=== PATIENT | female | born 1995 | race Caucasian/White ===

== ENCOUNTER 2022-08-13 23:04 | Inpatient (IN) ==
[2022-08-13] MEDS ORDERED: LACTATED RINGER'S 1,000 ML IV STA (23:41)
[2022-08-14] MEDS ORDERED: PENICILLIN G POTASSIUM 6 MU in DEXTROSE 5% 250 ML IV STA (01:29)
[2022-08-14] MEDS ORDERED: LIDOCAINE 1% LOCAL 20 ML VIAL INFIL PRN (01:29)
[2022-08-14] MEDS ORDERED: OXYTOCIN 30 UNITS/500 ML BAG IV PRN ×3 (01:29→16:49)
--- NOTE | 2022-08-14 01:39 | History & Physical Report ---
Date of Service August 14, 2022 Assessment & Plan (1) Uterine contractions at greater than 20 weeks of gestation: Plan: 27-year-old at 38 weeks and 2 days of gestation presenting today with regular contractions, cervical change, desire for epidural for pain, Vital signs stable afebrile, heart rate reassuring, GBS positive, CF during managed by pulmonology at [facility] stable on her meds, Admit, monitor, labs, penicillin for GBS, expectant management, All questions were answered. (2) GBS (group B Streptococcus carrier), +RV culture, currently : History of Present Illness Primary Care Provider: Ruthie Wlaker DO Patient is a 27-year-old G1, P0 at 38 weeks and 2 days of gestation who has been feeling contractions since yesterday morning. They got more painful and regular after 7 PM last night. She feels them every 1 to 2 minutes and rates pain 8 out of 10. She denies leakage of fluid or vaginal bleeding, she reports good movements. She was in the office yesterday and her cervix was checked to be 3 cm dilated, 70% effaced, -2 station, her contractions were irregular and less painful than. Her has been complicated by, 1. Cystic fibrosis, managed by pulmonology at [facility], patient was planning to deliver at [facility] but she stopped here due to frequent and painful contractions and wants to stay here to deliver. 2. GBS positive, patient denies allergy to penicillin, 3. Rubella nonimmune, Allergies Allergy/AdvReac Type Severity Reaction Status Date / Time cephalexin [From Keflex] Allergy Severe Hives Verified 08/13/22 23:24 sulfamethoxazole Allergy Severe Hives Verified 08/13/22 23:24 [From Bactrim] trimethoprim [From Bactrim] Allergy Severe Hives Verified 08/13/22 23:24 Home Medications Medication Instructions Recorded Confirmed Type cetirizine 10 mg tablet (Zyrtec) 10 mg PO DAILY 06/13/19 08/13/22 History cholecalciferol (vitamin D3) 250 mcg PO DAILY 06/13/19 08/13/22 History docusate sodium 100 mg capsule 100 mg PO BID 06/13/19 08/13/22 History (Colace) dornase logan 1 mg/mL solution for 2.5 mg inhalation DAILY 06/13/19 08/13/22 History inhalation (Pulmozyme) phytonadione (vitamin K1) 5 mg 5 mg PO DAILY 06/13/19 08/13/22 History tablet elexacaftor 100 mg-tezacaf 1 ea PO HS 06/16/19 08/13/22 History 50mg-ivacaf 75mg(d)/ivacaf 150mg(n) tablets (Trikafta) albuterol sulfate 2.5 mg/3 mL 2.5 mg inhalation BID 08/03/22 08/13/22 History (0.083 %) solution for nebulization famotidine 20 mg tablet 40 mg PO HS 08/03/22 08/13/22 History ferrous sulfate 325 mg (65 mg 325 mg PO DAILY 08/03/22 08/13/22 History iron) tablet prenat.vits,irene,xiv-befp-navvz 1 tab PO DAILY 08/03/22 08/13/22 History Patient History Medical History (Updated 08/14/22 @ 01:38 by Mariam Kendall MD) Chronic headache Classic migraine with aura Cystic fibrosis with pulmonary manifestations GERD (gastroesophageal reflux disease) Malabsorption syndrome Secondary trigeminal neuralgia Surgical History H/O sinus surgery H/O wisdom tooth extraction History of ankle surgery S/P cholecystectomy Family History Mother Thyroid disease Grandmother Thyroid disease Diabetes Heart trouble Social History Smoking Status: Never smoker Hx Alcohol Use: No Hx Substance Use: No Preferred Language: Nepalese Communication Ability: Effective Hearing Ability: Normal Information Technology Administrator Required: No Beliefs That Will Affect Care: None marital status: Current Living Situation: Spouse Current Living Situation Comment: House with , step son and foster child current occupational status: unemployed Other Information That Helps Us Care for You: No Feels Safe at Home: Yes Safety Concerns: Feels Safe At This Time Diet Comment: High fat, high salt due to Cystic Fibrosis Gender Identity: Female Assistive Devices: None REGIONAL PLANNER History No history of STDs, no history of genital herpes, chlamydia, gonorrhea Review of Systems as per Subjective / HPI Physical Exam Constitutional: WD/WN, vitals as above Gastrointestinal (Abdomen): normal bowel sounds, soft, nontender, no hepatosplenomegaly (Gravid) Genitourinary: normal external appearance OB Exam Abdomen: + vertex Manual OB Exam: + cervical dilation 3 cm (3-4 cm), + cervical effacement 70% and + station -2 (Right bulging amniotic bag) OB Exam Monitor Tracing: + external uterine monitor used (Contractions every 1 to 2 minutes) and + category I Results & Data ([facility]) Vital Signs (Past 12 Hours) Vital Signs Temp Pulse Resp BP O2 Del Method 08/13/22 23:27 36.8 C 18 Room Air 08/13/22 23:21 36.8 C 93 H 18 118/71
[2022-08-14] MEDS: LACTATED RINGER'S 1,000 ML IV PRN ×2 (01:47→10:23)
[2022-08-14 02:00] LABS: Hematocrit (blood only) 33.4 % (34.1-44.9); Hemoglobin 11.4 g/dl (12.0-16.0); Mean Corpuscular Hemoglobin 30.5 pg (25.0-34.0); Mean Corpuscular Hgb Conc 34.1 g/dL (32.0-36.0); Mean Corpuscular Volume 89.3 fL (80.0-100.0); Mean Platelet Volume 10.2 fL (9.4-12.3); Platelet Count 304 K/uL (130-400); RDW Coefficient of Variation 13.6 % (11.5-14.5); RDW Standard Deviation 44.9 fL (36.4-46.3); Red Blood Count 3.74 M/uL (3.93-5.22); White Blood Count 14.62 K/ul (4.8-10.8)
[2022-08-14] MEDS ORDERED: BUPIVACAINE 0.25% 30 ML VIAL ONE (02:07)
[2022-08-14] MEDS ORDERED: fentaNYL citrate 100 MCG/2 ML VIAL ONE (02:07)
[2022-08-14] MEDS ORDERED: LIDOCAINE 2%/EPINEPHRINE 1:200,000 20 ML SDV ONE (02:07)
[2022-08-14] MEDS ORDERED: SODIUM CHLORIDE 0.9% INJ 10 ML VIAL ONE (02:07)
[2022-08-14] MEDS ORDERED: ePHEDrine sulfate 50 MG/ML AMP ONE (02:07)
[2022-08-14] MEDS ORDERED: fentaNYL 2MCG/ML ROPIVACAINE 1.25MG/ML 100 ML BAG EPI ONE (02:08)
[2022-08-14 02:13] LABS: Albumin Globulin Ratio 0.9 (0.9-2); Albumin Level 3.3 gm/dl (3.4-5.0); BUN Creatinine Ratio 17.1 (10-20); Bilirubin,Total 0.3 mg/dl (0.2-1.0); Calcium 9.6 mg/dl (8.5-10.1); Creatinine Clr Calc Pharmacy 122.4 ml/min; Est GFR (African American) 136.7 ml/min; Est GFR (Non-African American) 117.9 ml/min; Globulin 3.5 gm/dl (2.5-4.0); Potassium 3.8 mmol/L (3.5-5.1); Total Protein 6.8 gm/dl (6.0-8.3)
[2022-08-14 02:43] LABS: Fibrinogen 479 mg/dl (184-400); Partial Thromboplastin Ratio 0.9; Partial Thromboplastin Time 24.2 Seconds (21.0-31.0); Prothrombin Time 10.7 Seconds (9.0-12.0)
--- NOTE | 2022-08-14 02:47 | Anesthesiology Consultation ---
Date of Service August 14, 2022 Assessment & Plan Chart Review Chart Review: Patient NOT seen in Pre Admission Testing and Acceptable Risk for Labor Epidural Consults Requested none ASA ASA3 Proposed Anesthesia Anesthesia Type: Labor Epidural and CSE Risk / Benefits Reviewed With: PT / POA / Parent / Guardian, Accepts Plan and Informed Consent Obtained History Height/Weight Height: 5 ft 3 in Weight: 83.461 kg Allergies Allergy/AdvReac Type Severity Reaction Status Date / Time cephalexin [From Keflex] Allergy Severe Hives Verified 08/13/22 23:24 sulfamethoxazole Allergy Severe Hives Verified 08/13/22 23:24 [From Bactrim] trimethoprim [From Bactrim] Allergy Severe Hives Verified 08/13/22 23:24 Medications Home Medications Medication Instructions Recorded Confirmed Last Taken cetirizine 10 mg tablet (Zyrtec) 10 mg PO DAILY 06/13/19 08/13/22 08/13/22 21:00 cholecalciferol (vitamin D3) 250 mcg PO DAILY 06/13/19 08/13/22 08/13/22 21:00 docusate sodium 100 mg capsule 100 mg PO BID 06/13/19 08/13/22 08/13/22 21:00 (Colace) dornase logan 1 mg/mL solution for 2.5 mg inhalation DAILY 06/13/19 08/13/2208/03 21:00 inhalation (Pulmozyme) phytonadione (vitamin K1) 5 mg 5 mg PO DAILY 06/13/19 08/13/22 08/13/22 21:00 tablet elexacaftor 100 mg-tezacaf 1 ea PO HS 06/16/19 08/13/22 08/13/22 21:00 50mg-ivacaf 75mg(d)/ivacaf 150mg(n) tablets (Trikafta) albuterol sulfate 2.5 mg/3 mL 2.5 mg inhalation BID 08/03/22 08/13/22 08/13/22 21:00 (0.083 %) solution for nebulization famotidine 20 mg tablet 40 mg PO HS 08/03/22 08/13/22 08/13/22 21:00 ferrous sulfate 325 mg (65 mg 325 mg PO DAILY 08/03/22 08/13/22 08/13/22 21:00 iron) tablet prenat.vits,irene,uqd-acjf-lzeqd 1 tab PO DAILY 08/03/22 08/13/22 08/13/22 21:00 Active Medications Generic Name Dose Route Start Last Admin Trade Name Tal PRN Reason Stop Dose Admin Lactated Ringer's 1,000 mls @ 150 mls/hr 08/14/22 01:29 08/14/22 01:47 Lr IV 08/16/22 01:28 150 mls/hr .[id number] PRN Administration L&D Protocol Protocol NPO Date Last Intake of Fluids: 08/14/22 Time Last Intake of Fluids: 02:00 Date Last Intake of Solids: 08/13/22 Time Last Intake of Solids: 19:00 Past Medical History Medical History Asthma Chronic headache Classic migraine with aura Cystic fibrosis with pulmonary manifestations GERD (gastroesophageal reflux disease) Malabsorption syndrome Secondary trigeminal neuralgia Exercise / Class Metabolic Activity II 4-5 Yardwork/Stairs/Walk up hill Past Family History Family History Mother Thyroid disease Grandmother Thyroid disease Diabetes Heart trouble Past Surgical History Surgical History H/O sinus surgery H/O wisdom tooth extraction History of ankle surgery S/P cholecystectomy Past Anesthesia History No Hx of Anesthesia Complications and No Family Hx of Anesthesia Complications Social History Smoking Status: Never smoker Hx Alcohol Use: No Hx Substance Use: No substance use type: does not use Review of Systems no chest pain or sob Physical Exam Vital Signs Last Vital Signs Temp 36.5 C 08/14/22 02:20 Pulse 80 08/14/22 02:40 Resp 18 08/14/22 02:20 BP 136/90 08/14/22 02:22 Pulse Ox 97 08/14/22 02:40 O2 Del Method 08/13/22 23:27 ENMT Mouth: no TMJ abnormality Thyromental Distance: > or= 3.5 Finger Breadths Mallampati Class: II Neck normal visual inspection Respiratory normal respiratory effort Auscultation: lungs clear to auscultation bilaterally Cardiovascular Rate/Rhythm: regular rate and regular rhythm Musculoskeletal Spine: normal cervical ROM Neurologic moves all extremities Psychiatric Orientation: alert and oriented x 3 Testing Laboratory Results 08/14/22 01:42 08/14/22 01:42 PT 10.7 Seconds (9.0-12.0) 08/14/22 01:46 INR 1.0 (0.9-1.1) 08/14/22 01:46 APTT 24.2 Seconds (21.0-31.0) 08/14/22 01:46
--- NOTE | 2022-08-14 02:52 | Obstetrical Progress Note ---
Date of Service August 14, 2022 Assessment & Plan Admission and Anticipated Discharge Date Admission Date: August 14, 2022 Subjective Patient is reevaluated No LOF/VB Still having ctxs q 1-2 min, some painful some not. Bed side US: Single IUP, Vertex, FHR 140's, multiple extremity and body movemebts seen, AFV normal, placenta anterior, normal in appearance. FHR categ I Labs WNL as below Continue to monitor closely PCN for GBS Lab Results 08/14/22 08/14/22 08/14/22 Range/Units 01:40 01:42 01:42 WBC 14.62 H (4.8-10.8) K/ul RBC 3.74 L (3.93-5.22) M/uL Hgb 11.4 L (12.0-16.0) g/dl Hct 33.4 L (34.1-44.9) % MCV 89.3 (80.0-100.0) fL MCH 30.5 (25.0-34.0) pg MCHC 34.1 (32.0-36.0) g/dL RDW Std Deviation 44.9 (36.4-46.3) fL RDW Coeff of Bettye 13.6 (11.5-14.5) % Plt Count 304 (130-400) K/uL MPV 10.2 (9.4-12.3) fL PT (9.0-12.0) Seconds INR (0.9-1.1) APTT (21.0-31.0) Seconds PTT Ratio Fibrinogen (184-400) mg/dl Sodium 137 (136-145) mmol/L Potassium 3.8 (3.5-5.1) mmol/L Chloride 108 H (98-107) mmol/L Carbon Dioxide 20 L (21-32) mmol/L Anion Gap 9 (3-11) BUN 12 (6-23) mg/dl Creatinine 0.70 (0.6-1.2) mg/dl Est Cr Clr Drug Dosing 122.4 ml/min Est GFR ( Amer) 136.7 ml/min Est GFR (Non-Af Amer) 117.9 ml/min BUN/Creatinine Ratio 17.1 (10-20) Glucose 96 (70-99(Fasting)) mg/dl Calcium 9.6 (8.5-10.1) mg/dl Total Bilirubin 0.3 (0.2-1.0) mg/dl AST 15 (13-39) U/L ALT 15 (7-52) U/L Alkaline Phosphatase 110 H (34-104) U/L Total Protein 6.8 (6.0-8.3) gm/dl Albumin 3.3 L (3.4-5.0) gm/dl Globulin 3.5 (2.5-4.0) gm/dl Albumin/Globulin Ratio 0.9 (0.9-2) SARS-CoV-2, RNA, NAAT NEGATIVE (NEGATIVE) 08/14/22 Range/Units 01:46 WBC (4.8-10.8) K/ul RBC (3.93-5.22) M/uL Hgb (12.0-16.0) g/dl Hct (34.1-44.9) % MCV (80.0-100.0) fL MCH (25.0-34.0) pg MCHC (32.0-36.0) g/dL RDW Std Deviation (36.4-46.3) fL RDW Coeff of Bettye (11.5-14.5) % Plt Count (130-400) K/uL MPV (9.4-12.3) fL PT 10.7 (9.0-12.0) Seconds INR 1.0 (0.9-1.1) APTT 24.2 (21.0-31.0) Seconds PTT Ratio 0.9 Fibrinogen 479 H (184-400) mg/dl Sodium (136-145) mmol/L Potassium (3.5-5.1) mmol/L Chloride (98-107) mmol/L Carbon Dioxide (21-32) mmol/L Anion Gap (3-11) BUN (6-23) mg/dl Creatinine (0.6-1.2) mg/dl Est Cr Clr Drug Dosing ml/min Est GFR ( Amer) ml/min Est GFR (Non-Af Amer) ml/min BUN/Creatinine Ratio (10-20) Glucose (70-99(Fasting)) mg/dl Calcium (8.5-10.1) mg/dl Total Bilirubin (0.2-1.0) mg/dl AST (13-39) U/L ALT (7-52) U/L Alkaline Phosphatase (34-104) U/L Total Protein (6.0-8.3) gm/dl Albumin (3.4-5.0) gm/dl Globulin (2.5-4.0) gm/dl Albumin/Globulin Ratio (0.9-2) SARS-CoV-2, RNA, NAAT (NEGATIVE) Results & Data ([facility]) Vital Signs (Past 12 Hours) Vital Signs Temp Pulse Resp BP Pulse Ox O2 Del Method 08/13/22 23:27 36.8 C 18 Room Air 08/14/22 02:45 83 98 08/14/22 02:40 80 97 08/14/22 02:35 80 98 08/14/22 02:30 89 98 08/14/22 02:25 82 99 08/14/22 02:22 82 136/90 08/14/22 02:21 68 142/89 H 08/14/22 02:20 36.5 C 71 18 99 08/14/22 02:15 81 98 08/14/22 02:10 75 98 08/14/22 02:05 80 99 08/14/22 02:00 80 100 08/14/22 01:55 85 98 08/13/22 23:21 36.8 C 93 H 18 118/71
[2022-08-14] MEDS: PENICILLIN G POTASSIUM 3 MU in DEXTROSE 5% 100 ML IV PRN ×3 (06:00→14:42)
[2022-08-14] MEDS ORDERED: DORNASE ALFA 2.5 ML AMP INH SCH ×2 (07:00→21:00)
[2022-08-14] MEDS ORDERED: ONDANSETRON INJ 2 MG/ML 2 ML VIAL IV PRN (07:07)
[2022-08-14] MEDS ORDERED: fentaNYL 2MCG/ML ROPIVACAINE 1.25MG/ML 100 ML BAG EPI PRN (07:07)
[2022-08-14] MEDS ORDERED: ePHEDrine sulfate 50 MG/ML AMP IV PRN (07:07)
[2022-08-14] MEDS ORDERED: diphenhydrAMINE 50 MG/ML VIAL IV PRN (07:07)
[2022-08-14] MEDS ORDERED: NALBUPHINE HCL INJ 10 MG/ML AMP IV PRN (07:07)
[2022-08-14] MEDS ORDERED: NALOXONE HCL 1 MG in SODIUM CHLORIDE 0.9% 1000ML 1,000 ML IV PRN (07:07)
[2022-08-14] MEDS ORDERED: NALOXONE HCL 0.4 MG/1 ML VIAL/CARP IV PRN (07:07)
[2022-08-14] MEDS: ALBUTEROL 0.083% NEBU SOLN 3 ML VIAL INH SCH ×2 (07:12→20:10)
--- NOTE | 2022-08-14 08:51 | Pulmonary Consultation ---
Date of Consultation August 14, 2022 Assessment & Plan (1) Cystic fibrosis with pulmonary manifestations: 27-year-old female with cystic fibrosis and pulmonary manifestations who presented to this institution for labor and delivery. Pulmonary has been consulted for ongoing management during inpatient hospitalization. * Patient is without symptoms at this time. Actually, she reports that this is the best that she is felt from a pulmonary standpoint since starting her new medications at the discretion of her cystic fibrosis specialists at [facility]. * Will continue her home dosing of Trikafta as she has been. * Continue routine of Pulmozyme nebulizers at night as well as albuterol nebulizers. * Saturating well on room air. Offers no complaints at this time. * No further pulmonary input at this time. Please feel free to reach out to us in the event of any changes. Otherwise, her clinical course has been well outlined by her cystic fibrosis specialists. Thank you for allowing us to participate in the care of this patient. Please see attending physician's note for any further recommendations (2) Uterine contractions at greater than 20 weeks of gestation: (3) Asthma: Supervising Physician Co-Signing Physician Notes Patient seen and examined. EMR reviewed. Discussed with ALE and agree with assessment plan as noted. The patient is doing quite well clinically. She is currently in labor with an epidural in place. She is having no pulmonary issues and states her breathing is as good as its been years. She is not experiencing any signs or symptoms of an exacerbation and denies any cough or sputum production. No wheezing. She does not have an oxygen requirement. She is not had any imaging of her chest performed. Recommend continuing the patient's outpatient regiment. No need to escalate t herapy. There is no indication for antimicrobial therapy currently. The patient should be able to deliver without pulmonary issues. She can follow-up with her outpatient pulmonary providers at [facility] at discharge. Feel free to contact us if the patient develops any respiratory issues during her hospitalization. Otherwise she appears to be doing quite well clinically. Pulmonary will sign off at this point time but again feel free to contact us with any questions or concerns History of Present Illness Reason for Consultation: Cystic Fibrosis Requesting Physician: Dr. Mariam Kendall MD Attending Physician: Mariam Kendall MD History of Present Illness Patient is a pleasant G1, P0 27-year-old female with a significant past medical history of cystic fibrosis, trigeminal neuralgia, chronic migraines, and malabsorption syndrome. She was admitted to this institution overnight to the labor and delivery unit. She is 38 weeks and 2 days gestation and noted yesterday to be 3 cm dilated 70% effaced. He is followed with maternal- medicine and her CF specialists at [facility] throughout her . She reports that her pulmonary symptoms have been well controlled throughout her and x-ray reports that since starting her new CF medications, this is the best she has felt from a pulmonary standpoint. She currently utilizes Trikafta, Pu lmozyme nebs, and albuterol. She reports no issues with cough or difficulty breathing at this time. She reports that she did have some swelling secondary to recent fluid administration from prior hospitalization, but this is otherwise resolved. She offers no other complaints this time Allergies Allergy/AdvReac Type Severity Reaction Status Date / Time cephalexin [From Keflex] Allergy Severe Hives Verified 08/13/22 23:24 sulfamethoxazole Allergy Severe Hives Verified 08/13/22 23:24 [From Bactrim] trimethoprim [From Bactrim] Allergy Severe Hives Verified 08/13/22 23:24 Home Medications Medication Instructions Recorded Confirmed Type cetirizine 10 mg tablet (Zyrtec) 10 mg PO DAILY 06/13/19 08/13/22 History cholecalciferol (vitamin D3) 250 mcg PO DAILY 06/13/19 08/13/22 History docusate sodium 100 mg capsule 100 mg PO BID 06/13/19 08/13/22 History (Colace) dornase logan 1 mg/mL solution for 2.5 mg inhalation DAILY 06/13/19 08/13/22 History inhalation (Pulmozyme) phytonadione (vitamin K1) 5 mg 5 mg PO DAILY 06/13/19 08/13/22 History tablet elexacaftor 100 mg-tezacaf 1 ea PO HS 06/16/19 08/13/22 History 50mg-ivacaf 75mg(d)/ivacaf 150mg(n) tablets (Trikafta) albuterol sulfate 2.5 mg/3 mL 2.5 mg inhalation BID 08/03/22 08/13/22 History (0.083 %) solution for nebulization famotidine 20 mg tablet 40 mg PO HS 08/03/22 08/13/22 History ferrous sulfate 325 mg (65 mg 325 mg PO DAILY 08/03/22 08/13/22 History iron) tablet prenat.vits,irene,ojq-eliy-bnuiv 1 tab PO DAILY 08/03/22 08/13/22 History Patient History Medical History Asthma Chronic headache Classic migraine with aura Cystic fibrosis with pulmonary manifestations GERD (gastroesophageal reflux disease) Malabsorption syndrome Secondary trigeminal neuralgia Surgical History H/O sinus surgery H/O wisdom tooth extraction History of ankle surgery S/P cholecystectomy Family History Mother Thyroid disease Grandmother Thyroid disease Diabetes Heart trouble Social History Smoking Status: Never smoker Hx Alcohol Use: No Hx Substance Use: No Preferred Language: Luxembourger Communication Ability: Effective Hearing Ability: Normal Reactor Operator Required: No Beliefs That Will Affect Care: None marital status: Current Living Situation: Spouse Current Living Situation Comment: House with , step son and foster child current occupational status: unemployed Other Information That Helps Us Care for You: No Feels Safe at Home: Yes Safety Concerns: Feels Safe At This Time Diet Comment: High fat, high salt due to Cystic Fibrosis Gender Identity: Female Assistive Devices: None Review of Systems Review of Systems: A complete 10 point review of systems was reviewed with the patient with pertinent positives and negatives as per history of present illness. All else were negative. Physical Exam Physical Exam: VITAL SIGNS - Vital signs and nursing notes were reviewed. GENERAL - 27-year-old female appearing her stated age who is in no acute distress. Communicates well with provider and answers questions appropriately. NECK - Neck with FROM. LUNGS - Chest wall symmetric without accessory muscle use, intercostals retractions, or central cyanosis. Normal vesicular breath sounds CTA B/L. No wheezes, rales, or rhonchi appreciated. CARDIAC - RRR with S1/S2. No murmur, rubs, or gallops appreciated. ABDOMEN - Abdominal contour gravid without pulsations or visible masses. BS normoactive all four quadrants. EXTREMITIES - No clubbing or peripheral cyanosis. No pretibial edema present. +3/5 radial and dorsalis pedis pulses palpated throughout. +5/5 strength noted in UE/LE bilaterally. PSYCH - A&Ox3 and cooperates fully with examiner. Pt is very pleasant and interacts well with examiner. Results & Data Results & Data ([facility]) Vital Signs (Past 12 Hours) Vital Signs Temp Pulse Pulse Resp BP Pulse Ox O2 Del Method 08/14/22 07:51 77 16 98 Room Air 08/13/22 23:27 36.8 C 18 Room Air 08/14/22 08:36 82 95 08/14/22 08:31 82 94 08/14/22 08:30 16 08/14/22 08:30 16 08/14/22 08:29 75 125/72 08/14/22 08:26 94 08/14/22 08:26 84 08/14/22 08:26 83 94 08/14/22 08:21 82 95 08/14/22 08:20 83 94 08/14/22 08:16 95 08/14/22 08:16 79 08/14/22 08:16 80 116/70 08/14/22 08:14 80 94 08/14/22 08:11 77 95 08/14/22 07:30 16 08/14/22 07:30 16 08/14/22 08:06 84 97 08/14/22 08:01 77 96 08/14/22 08:00 81 18 129/70 08/14/22 07:56 103 H 98 08/14/22 07:51 80 96 08/14/22 07:46 83 96 08/14/22 07:44 77 122/73 08/14/22 07:41 86 98 08/14/22 07:36 91 H 96 08/14/22 07:31 87 97 08/14/22 07:29 80 121/74 08/14/22 07:26 83 97 08/14/22 07:21 80 99 08/14/22 07:10 16 08/14/22 07:10 36.8 C 16 08/14/22 07:16 70 100 08/14/22 07:14 77 117/70 08/14/22 07:11 72 98 08/14/22 07:06 79 98 08/14/22 07:00 18 08/14/22 07:00 18 08/14/22 07:01 74 97 08/14/22 06:59 71 113/72 08/14/22 06:56 74 98 08/14/22 06:51 77 97 08/14/22 06:46 72 97 08/14/22 06:45 77 120/76 08/14/22 06:41 88 97 08/14/22 06:36 79 97 08/14/22 06:31 91 H 97 08/14/22 06:29 78 124/81 08/14/22 06:26 73 96 08/14/22 06:21 71 96 08/14/22 06:16 75 97 08/14/22 06:14 77 121/81 08/14/22 06:11 72 96 08/14/22 06:00 16 08/14/22 06:00 16 08/14/22 06:06 73 96 08/14/22 06:01 84 97 08/14/22 05:59 73 106/69 08/14/22 05:56 96 08/14/22 05:56 75 08/14/22 05:56 73 93 08/14/22 05:51 74 96 08/14/22 05:46 76 96 08/14/22 05:45 71 93 08/14/22 05:44 66 113/70 08/14/22 05:41 77 96 08/14/22 05:36 75 96 08/14/22 05:31 75 96 08/14/22 05:29 71 113/70 08/14/22 05:26 73 95 08/14/22 05:21 81 96 08/14/22 05:16 71 95 08/14/22 05:14 66 121/75 08/14/22 05:00 18 08/14/22 05:00 18 08/14/22 05:11 76 95 08/14/22 05:06 78 95 08/14/22 05:05 75 94 08/14/22 05:01 73 95 08/14/22 04:59 74 117/74 08/14/22 04:56 70 95 08/14/22 04:51 71 95 08/14/22 04:46 71 95 08/14/22 04:44 65 113/68 08/14/22 04:41 69 95 01/12/23 04:36 71 95 08/14/22 04:31 70 95 08/14/22 04:29 65 115/72 08/14/22 04:26 71 95 08/14/22 04:21 71 95 08/14/22 04:18 73 94 08/14/22 04:16 73 94 08/14/22 04:14 75 113/70 08/14/22 04:12 74 94 08/14/22 04:11 71 95 08/14/22 04:06 71 95 08/14/22 04:01 73 96 08/14/22 04:00 76 94 08/14/22 03:59 68 112/69 08/14/22 03:56 69 95 08/14/22 03:55 73 93 08/14/22 03:51 70 95 08/14/22 03:46 72 95 08/14/22 03:44 63 116/73 08/14/22 03:41 71 95 08/14/22 03:36 69 96 08/14/22 03:31 69 96 08/14/22 03:29 72 118/74 08/14/22 03:26 70 96 08/14/22 03:21 71 97 08/14/22 03:16 74 97 08/14/22 03:14 80 120/78 08/14/22 03:11 77 97 08/14/22 03:12 71 124/76 08/14/22 03:10 82 120/74 08/14/22 03:08 73 119/73 08/14/22 03:06 98 08/14/22 03:06 77 08/14/22 03:06 71 115/69 08/14/22 03:04 78 119/70 08/14/22 03:01 79 98 08/14/22 03:02 83 108/60 08/14/22 03:00 79 110/63 08/14/22 02:56 104 H 99 08/14/22 02:51 77 153/88 H 99 08/14/22 02:45 83 98 08/14/22 02:40 80 97 08/14/22 02:35 80 98 08/14/22 02:30 89 98 08/14/22 02:25 82 99 08/14/22 02:22 82 136/90 08/14/22 02:21 68 142/89 H 08/14/22 02:20 36.5 C 71 18 99 08/14/22 02:15 81 98 08/14/22 02:10 75 98 08/14/22 02:05 80 99 08/14/22 02:00 80 100 08/14/22 01:55 85 98 08/13/22 23:21 36.8 C 93 H 18 118/71 PG Care Time/CCT Total # of Minutes Spent Total Time Spent with Patient: Total time spent is greater than 50% in coordination of care (as documented) at patient's floor/unit and/or counseling patient: Coding Level of Care Code INP/OBS CONSULT LVL 4, 60 MIN Diagnoses Cystic fibrosis with pulmonary manifestations E84.0 Uterine contractions at greater than 20 weeks of gestation O47.9 Asthma J45.909 Time Spent (min) 35
[2022-08-14] MEDS ORDERED: FERROUS SULFATE 325 MG TAB PO SCH ×2 (09:00→21:00)
[2022-08-14] MEDS ORDERED: PRENATAL VITAMIN 1 TAB PO SCH ×2 (09:00→21:00)
[2022-08-14] MEDS ORDERED: CHOLECALCIFEROL 5,000 UNITS 125 MCG TAB PO SCH ×2 (09:00→21:00)
[2022-08-14] MEDS ORDERED: CETIRIZINE HCL 10 MG TABLET PO SCH ×2 (09:00→21:00)
[2022-08-14] MEDS ORDERED: PHYTONADIONE 5 MG TAB PO SCH ×2 (09:00→21:00)
--- NOTE | 2022-08-14 09:02 | Labor Progress Brief Note ---
Date of Service August 14, 2022 Assessment & Plan Admission and Anticipated Discharge Date Admission Date: August 14, 2022 Physical Exam Genitourinary: OB Exam Abdomen: + estimated weight (7 lbs.) Manual OB Exam: + cervical dilation 3 cm, + cervical effacement 60% and 70% and + station high OB Exam Monitor Tracing: + external FHT monitor used, + external uterine monitor used, + category I and + normal FHT variability Will start Oxytocin to augment patients contractions that have spaced out since epidural placed. Results & Data ([facility]) Vital Signs (Past 12 Hours) Vital Signs Temp Pulse Pulse Resp BP Pulse Ox O2 Del Method 08/14/22 07:51 77 16 98 Room Air 08/13/22 23:27 36.8 C 18 Room Air 08/14/22 08:56 105 H 96 08/14/22 08:51 82 95 08/14/22 08:50 75 94 08/14/22 08:46 79 95 08/14/22 08:44 76 118/68 08/14/22 08:41 77 95 08/14/22 08:36 82 95 08/14/22 08:31 82 94 08/14/22 08:30 16 08/14/22 08:30 16 08/14/22 08:29 75 125/72 08/14/22 08:26 94 08/14/22 08:26 84 08/14/22 08:26 83 94 08/14/22 08:21 82 95 08/14/22 08:20 83 94 08/14/22 08:16 95 08/14/22 08:16 79 08/14/22 08:16 80 116/70 08/14/22 08:14 80 94 08/14/22 08:11 77 95 08/14/22 07:30 16 08/14/22 07:30 16 08/14/22 08:06 84 97 08/14/22 08:01 77 96 08/14/22 08:00 81 18 129/70 08/14/22 07:56 103 H 98 08/14/22 07:51 80 96 08/14/22 07:46 83 96 08/14/22 07:44 77 122/73 08/14/22 07:41 86 98 08/14/22 07:36 91 H 96 08/14/22 07:31 87 97 08/14/22 07:29 80 121/74 08/14/22 07:26 83 97 08/14/22 07:21 80 99 08/14/22 07:10 16 08/14/22 07:10 36.8 C 16 08/14/22 07:16 70 100 08/14/22 07:14 77 117/70 08/14/22 07:11 72 98 08/14/22 07:06 79 98 08/14/22 07:00 18 08/14/22 07:00 18 08/14/22 07:01 74 97 08/14/22 06:59 71 113/72 08/14/22 06:56 74 98 08/14/22 06:51 77 97 08/14/22 06:46 72 97 08/14/22 06:45 77 120/76 08/14/22 06:41 88 97 08/14/22 06:36 79 97 08/14/22 06:31 91 H 97 08/14/22 06:29 78 124/81 08/14/22 06:26 73 96 08/14/22 06:21 71 96 08/14/22 06:16 75 97 08/14/22 06:14 77 121/81 08/14/22 06:11 72 96 08/14/22 06:00 16 08/14/22 06:00 16 08/14/22 06:06 73 96 08/14/22 06:01 84 97 08/14/22 05:59 73 106/69 08/14/22 05:56 96 08/14/22 05:56 75 08/14/22 05:56 73 93 08/14/22 05:51 74 96 08/14/22 05:46 76 96 08/14/22 05:45 71 93 08/14/22 05:44 66 113/70 08/14/22 05:41 77 96 08/14/22 05:36 75 96 08/14/22 05:31 75 96 08/14/22 05:29 71 113/70 08/14/22 05:26 73 95 08/14/22 05:21 81 96 08/14/22 05:16 71 95 08/14/22 05:14 66 121/75 08/14/22 05:00 18 08/14/22 05:00 18 08/14/22 05:11 76 95 08/14/22 05:06 78 95 08/14/22 05:05 75 94 08/14/22 05:01 73 95 08/14/22 04:59 74 117/74 08/14/22 04:56 70 95 08/14/22 04:51 71 95 08/14/22 04:46 71 95 08/14/22 04:44 65 113/68 08/14/22 04:41 69 95 08/14/22 04:36 71 95 08/14/22 04:31 70 95 08/14/22 04:29 65 115/72 08/14/22 04:26 71 95 08/14/22 04:21 71 95 08/14/22 04:18 73 94 08/14/22 04:16 73 94 08/14/22 04:14 75 113/70 08/14/22 04:12 74 94 08/14/22 04:11 71 95 08/14/22 04:06 71 95 08/14/22 04:01 73 96 08/14/22 04:00 76 94 08/14/22 03:59 68 112/69 08/14/22 03:56 69 95 08/14/22 03:55 73 93 08/14/22 03:51 70 95 08/14/22 03:46 72 95 08/14/22 03:44 63 116/73 08/14/22 03:41 71 95 08/14/22 03:36 69 96 08/14/22 03:31 69 96 08/14/22 03:29 72 118/74 08/14/22 03:26 70 96 08/14/22 03:21 71 97 08/14/22 03:16 74 97 08/14/22 03:14 80 120/78 08/14/22 03:11 77 97 08/14/22 03:12 71 124/76 08/14/22 03:10 82 120/74 08/14/22 03:08 73 119/73 08/14/22 03:06 98 08/14/22 03:06 77 08/14/22 03:06 71 115/69 08/14/22 03:04 78 119/70 08/14/22 03:01 79 98 08/14/22 03:02 83 108/60 08/14/22 03:00 79 110/63 08/14/22 02:56 104 H 99 08/14/22 02:51 77 153/88 H 99 08/14/22 02:45 83 98 08/14/22 02:40 80 97 08/14/22 02:35 80 98 08/14/22 02:30 89 98 08/14/22 02:25 82 99 08/14/22 02:22 82 136/90 08/14/22 02:21 68 142/89 H 08/14/22 02:20 36.5 C 71 18 99 08/14/22 02:15 81 98 08/14/22 02:10 75 98 08/14/22 02:05 80 99 08/14/22 02:00 80 100 08/14/22 01:55 85 98 08/13/22 23:21 36.8 C 93 H 18 118/71
[2022-08-14] MEDS: TRIKAFTA PO SCH (09:10)
[2022-08-14] MEDS: DOCUSATE SODIUM 100 MG CAP PO SCH ×2 (09:10→22:08)
--- NOTE | 2022-08-14 15:14 | Delivery Summary ---
Vaginal Delivery Summary Date of Service August 14, 2022 Vaginal Delivery Summary Delivery Note live female ELENO over intact perineum with nuchal cord x1 reduced at delivery of head with delayed cord clamping and Apgars 89 weight pending. cord blood obtained followed by spontaneous delivery of intact placenta. No tears. EBL 100 ml. Final sponge and instrument count are correct. Mom and baby stable.
[2022-08-14] MEDS ORDERED: BENZOCAINE 20% AER SPR 82.5 GM CAN EXT PRN (16:49)
[2022-08-14] MEDS ORDERED: DIPHTHERIA/TETANUS/PERTUSSIS 0.5mL SYR/VIAL (Age 7+yrs) IM ONE (16:49)
[2022-08-14] MEDS ORDERED: bisacodyL 10 MG SUPP PR PRN (16:49)
[2022-08-14] MEDS ORDERED: ACETAMINOPHEN 325 MG TAB PO PRN (16:49)
[2022-08-14] MEDS ORDERED: HYDROCORTISONE ACETATE 25 MG SUPP PR PRN (16:49)
--- NOTE | 2022-08-14 17:49 | Anesthesia Procedure Note ---
Date of Service August 14, 2022 Anesthesia Post Epidural Note Vital Signs Vital Signs: Temp Pulse Resp BP Pulse Ox O2 Del Method 36.9 C 81 18 123/74 93 08/14/22 13:25 08/14/22 17:35 08/14/22 17:35 08/14/22 17:35 08/14/22 15:01 08/14/22 17:35 Pain Intensity Bilateral Lower Abdomen: Pain Intensity: 5 Notes Mental Status: alert / awake / arousable and participated in evaluation Patient Amnestic to Procedure: No Nausea / Vomiting: adequately controlled Pain: adequately controlled Airway Patency, RR, SpO2: stable & adequate BP & HR: stable & adequate Hydration State: stable & adequate Neuraxial Anesthesia: was administered and sensory block resolved Anesthetic Complications: no major complications apparent and Pt Satisfied with anesthetic care Epidural: Removed without complications and With tip intact
[2022-08-14] MEDS ORDERED: FAMOTIDINE 40 MG TABLET PO SCH (21:00)
[2022-08-14] MEDS ORDERED: DOCUSATE SODIUM 100 MG CAP PO SCH (21:00)
[2022-08-14] MEDS ORDERED: TRIKAFTA PO SCH (21:00)
[2022-08-15] MEDS: IBUPROFEN 600 MG TAB PO PRN ×3 (03:56→12:46)
[2022-08-15 06:41] LABS: Hematocrit (blood only) 28.3 % (34.1-44.9); Hemoglobin 9.7 g/dl (12.0-16.0); Mean Corpuscular Hemoglobin 30.5 pg (25.0-34.0); Mean Corpuscular Hgb Conc 34.3 g/dL (32.0-36.0); Mean Platelet Volume 10.5 fL (9.4-12.3); Platelet Count 249 K/uL (130-400); RDW Coefficient of Variation 13.8 % (11.5-14.5); RDW Standard Deviation 45.5 fL (36.4-46.3); Red Blood Count 3.18 M/uL (3.93-5.22); White Blood Count 12.73 K/ul (4.8-10.8)
[2022-08-15] MEDS: ALBUTEROL 0.083% NEBU SOLN 3 ML VIAL INH SCH (07:36)
[2022-08-15] MEDS ORDERED: FERROUS SULFATE 325 MG TAB PO SCH ×2 (08:00→09:00)
[2022-08-15] MEDS ORDERED: PRENATAL VITAMIN 1 TAB PO SCH (08:00)
--- NOTE | 2022-08-15 08:35 | Obstetrical Progress Note ---
Date of Service August 15, 2022 Assessment & Plan Admission and Anticipated Discharge Date Admission Date: August 14, 2022 Subjective Patient is seen and examined. She feels well, no complaints. Ambulating without dizziness Voiding without difficulty Tolerating regular diet with out N&V Bleeding is minimal No fever/ chills/ CP/ SOB/ N&V/ Leg pain Breast feeding without problems Vital Signs Temp Pulse Resp BP Pulse Ox O2 Del Method 08/15/22 07:36 70 18 97 Room Air 08/15/22 03:40 36.9 C 64 16 124/78 95 Room Air 08/14/22 23:10 36.8 C 87 18 124/85 97 Room Air Lab Results 08/14/22 08/14/22 08/14/22 Range/Units 01:40 01:42 01:42 WBC 14.62 H (4.8-10.8) K/ul RBC 3.74 L (3.93-5.22) M/uL Hgb 11.4 L (12.0-16.0) g/dl Hct 33.4 L (34.1-44.9) % MCV 89.3 (80.0-100.0) fL MCH 30.5 (25.0-34.0) pg MCHC 34.1 (32.0-36.0) g/dL RDW Std Deviation 44.9 (36.4-46.3) fL RDW Coeff of Bettye 13.6 (11.5-14.5) % Plt Count 304 (130-400) K/uL MPV 10.2 (9.4-12.3) fL PT (9.0-12.0) Seconds INR (0.9-1.1) APTT (21.0-31.0) Seconds PTT Ratio Fibrinogen (184-400) mg/dl Sodium (136-145) mmol/L Potassium (3.5-5.1) mmol/L Chloride (98-107) mmol/L Carbon Dioxide (21-32) mmol/L Anion Gap (3-11) BUN (6-23) mg/dl Creatinine (0.6-1.2) mg/dl Est Cr Clr Drug Dosing ml/min Est GFR ( Amer) ml/min Est GFR (Non-Af Amer) ml/min BUN/Creatinine Ratio (10-20) Glucose (70-99(Fasting)) mg/dl Calcium (8.5-10.1) mg/dl Total Bilirubin (0.2-1.0) mg/dl AST (13-39) U/L ALT (7-52) U/L Alkaline Phosphatase (34-104) U/L Total Protein (6.0-8.3) gm/dl Albumin (3.4-5.0) gm/dl Globulin (2.5-4.0) gm/dl Albumin/Globulin Ratio (0.9-2) SARS-CoV-2, RNA, NAAT NEGATIVE (NEGATIVE) Blood Type O Positive Antibody Screen NEGATIVE 08/14/22 08/14/22 08/15/22 Range/Units 01:42 01:46 06:07 WBC 12.73 H (4.8-10.8) K/ul RBC 3.18 L (3.93-5.22) M/uL Hgb 9.7 L (12.0-16.0) g/dl Hct 28.3 L (34.1-44.9) % MCV 89.0 (80.0-100.0) fL MCH 30.5 (25.0-34.0) pg MCHC 34.3 (32.0-36.0) g/dL RDW Std Deviation 45.5 (36.4-46.3) fL RDW Coeff of Bettye 13.8 (11.5-14.5) % Plt Count 249 (130-400) K/uL MPV 10.5 (9.4-12.3) fL PT 10.7 (9.0-12.0) Seconds INR 1.0 (0.9-1.1) APTT 24.2 (21.0-31.0) Seconds PTT Ratio 0.9 Fibrinogen 479 H (184-400) mg/dl Sodium 137 (136-145) mmol/L Potassium 3.8 (3.5-5.1) mmol/L Chloride 108 H (98-107) mmol/L Carbon Dioxide 20 L (21-32) mmol/L Anion Gap 9 (3-11) BUN 12 (6-23) mg/dl Creatinine 0.70 (0.6-1.2) mg/dl Est Cr Clr Drug Dosing 122.4 ml/min Est GFR ( Amer) 136.7 ml/min Est GFR (Non-Af Amer) 117.9 ml/min BUN/Creatinine Ratio 17.1 (10-20) Glucose 96 (70-99(Fasting)) mg/dl Calcium 9.6 (8.5-10.1) mg/dl Total Bilirubin 0.3 (0.2-1.0) mg/dl AST 15 (13-39) U/L ALT 15 (7-52) U/L Alkaline Phosphatase 110 H (34-104) U/L Total Protein 6.8 (6.0-8.3) gm/dl Albumin 3.3 L (3.4-5.0) gm/dl Globulin 3.5 (2.5-4.0) gm/dl Albumin/Globulin Ratio 0.9 (0.9-2) SARS-CoV-2, RNA, NAAT (NEGATIVE) Blood Type Antibody Screen PE: General: Alert, orientedx3, NAD Abd: soft, NT, fundus firm, below Umbilicus Perineum intact, Lochia rubra minimal Ext; NT, no edema AP: 27 yo s/p , ppd# 1 VSS Afebrile doing well Continue routine care All questions were answered Desires d/c this afternoon, has a foster child ( 18 month old) at home D/C home , f/u in office Results & Data ([facility]) Vital Signs (Past 12 Hours) Vital Signs Temp Pulse Resp BP Pulse Ox O2 Del Method 08/15/22 07:36 70 18 97 Room Air 08/15/22 03:40 36.9 C 64 16 124/78 95 Room Air 08/14/22 23:10 36.8 C 87 18 124/85 97 Room Air
[2022-08-15] MEDS: DOCUSATE SODIUM 100 MG CAP PO SCH (08:40)
[2022-08-15] MEDS: TRIKAFTA PO SCH (08:41)
[2022-08-15] MEDS ORDERED: MEASLES, MUMPS & RUBELLA VIRUS VIAL SQ ONE (14:02)
[2022-08-15] MEDS ORDERED: bisacodyL 5 MG TABEC PO SCH (20:00)
== END 2022-08-15 16:00 | disposition home or self-care (01) | DRG 806 ==
LOC: OPB 23:04 → 4S1 23:07 → 4E2 08-14 18:45